=== PATIENT | female | born 1955 | race Hispanic/Latino ===

== ENCOUNTER 2018-03-16 13:48 | Outpatient (CLI) | payer MEDICARE ==
--- NOTE | 2018-03-16 17:32 | ULT ---
LIMITED RIGHT BREAST ULTRASOUND: Date: 03-16-18 Provided Clinical History: Abnormal mammographic findings. FINDINGS: Limited sonographic integration is performed of the right breast in the region of mammographic concer n. There is a mildly prominent debris filled duct without focal mass evident. No concerning sonograph ic findings are evident. IMPRESSION: BIRADS category 2 - benign findings. Please refer to concurrently dictated mammography report for oth er details. POS: OFF
== END 2018-03-16 13:49 | disposition home or self-care (01) ==
LOC: BICMAMMO 13:48
PROVIDERS: ATTEND Family Medicine
DX: N64.4 Mastodynia (principal)
CPT/HCPCS: 76642; 77066; G0279